=== PATIENT | female | born 1985 ===

== ENCOUNTER 2019-07-12 09:28 | Emergency (ER) | payer OTHER ==
[~2019-07-12] VITALS: Ht 154.9 cm; Wt 58.1 kg
[2019-07-12] MEDS ORDERED: PROVERA (09:52)
== END 2019-07-12 13:48 | disposition home or self-care (01) ==
LOC: ER 09:28
DX: N93.8 Other specified abnormal uterine and vaginal bleeding (principal)

== ENCOUNTER 2023-08-27 09:30 | Inpatient (IN) | payer OTHER ==
[~2023-08-27] VITALS: Ht 154.9 cm; Wt 58.5 kg
[~2023-08-27 09:30] MED LIST: PROVERA
[2023-08-27 11:48] LABS: INR 0.94; PARTIAL THROMBOPLASTIN TIME 27.3 SECONDS (22.0-34.0); PROTHROMBIN TIME 9.9 SECONDS (9.0-11.5)
[2023-08-27] MEDS ORDERED: INFLIXIMAB (12:58)
[2023-08-27] MEDS ORDERED: COZAAR50 MG (12:59)
[2023-08-27] MEDS ORDERED: SPRINTEC 28 DA1 EACH (12:59)
[2023-08-27] MEDS ORDERED: [UNRECOGNIZED DRUG - OTHER] (12:59)
[2023-09-05] MEDS ORDERED: POVIDONE-IODINE 118 ML BOTT TOP ONE ×2 (07:05→08:30)
[2023-09-05] MEDS ORDERED: VISTASEAL DUAL APPICATOR 1 EACH APPL TOP ONE ×2 (07:07→08:30)
[2023-09-05] MEDS ORDERED: THROMBIN,HU/FIBRINOGEN/CALCIUM 4 ML SYRINGE TOP ONE ×2 (07:08→08:30)
[2023-09-05] MEDS ORDERED: CEFAZOLIN SODIUM 1,000 MG VIAL ONE (07:17)
[2023-09-05] MEDS ORDERED: LIDOCAINE HCL/EPINEPHRINE 10MG/ML 1% 50ML IJ ONE (08:10)
[2023-09-05] MEDS ORDERED: BUPIVACAINE HCL/PF 0.5% 30ML ML ONE (08:10)
[2023-09-05] MEDS ORDERED: LIDOCAINE HCL/EPINE 1%-Epi 30ML VIAL IJ ONE (08:30)
[2023-09-05] MEDS ORDERED: CEFAZOLIN SODIUM 1,000 MG VIAL IV ONE (08:30)
[2023-09-05] MEDS ORDERED: BUPIVACAINE HCL/PF 0.5% 30ML ML IJ ONE (08:30)
[2023-09-05] MEDS ORDERED: RINGERS SOLUTION,LACTATED 1,000 ML IV SCH (09:31)
[2023-09-05] MEDS ORDERED: ONDANSETRON HCL 2 MG/ML VIAL IV SCH (09:31)
[2023-09-05] MEDS ORDERED: CELECOXIB 200 MG CAPSULE PO SCH (09:32)
[2023-09-05] MEDS ORDERED: CEFOXITIN SODIUM 2,000 MG VIAL IV SCH (09:32)
[2023-09-05] MEDS ORDERED: ACETAMINOPHEN 325 MG TABLET PO SCH (09:33)
[2023-09-05] MEDS ORDERED: GABAPENTIN 100 MG CAPSULE PO SCH (09:33)
[2023-09-05] MEDS ORDERED: ONDANSETRON HCL 2 MG/ML VIAL ONE (10:17)
[2023-09-05 13:06] LABS: HEMATOCRIT 35.2 % (36.0-45.00); MEAN CELL VOLUME 83.6 fL (80.00-100.00); MEAN CORPUSCULAR HGB CONC 34.4 g/dl (32.0-36.0); PLATELET COUNT 347 K/uL (150-450); RED BLOOD COUNT 4.21 M/uL (4.00-6.00); RED CELL DISTRIBUTION WIDTH 14.9 % (11.5-14.5)
[2023-09-05 13:07] LABS: HEMOGLOBIN 12.1 g/dL (12.0-15.00); MEAN CORPUSCULAR HEMOGLOBIN 28.7 pg (27.00-32.0)
[2023-09-05 14:32] LABS: CALCIUM 8.8 mg/dL (8.5-10.1); CREATININE SERUM 0.72 mg/dL (0.55-1.02); GFR 90.65; POTASSIUM 5.14 mEq/L (3.5-5.1)
[2023-09-05 18:11] LABS: HEMATOCRIT 36.6 % (36.0-45.00); HEMOGLOBIN 12.1 g/dL (12.0-15.00); MEAN CELL VOLUME 83.3 fL (80.00-100.00); MEAN CORPUSCULAR HEMOGLOBIN 27.6 pg (27.00-32.0); MEAN CORPUSCULAR HGB CONC 33.1 g/dl (32.0-36.0); PLATELET COUNT 378 K/uL (150-450); RED CELL DISTRIBUTION WIDTH 15.3 % (11.5-14.5)
== END 2023-09-06 09:56 | disposition home or self-care (01) | DRG 743 ==
LOC: O/R 09-05 05:15 → SURH 09-05 07:00 → OB/GYN 09-05 10:02
PROVIDERS: ADMIT Obstetrics & Gynecology Gynecology; ATTEND Obstetrics & Gynecology Gynecology
PROC: 0UT74ZZ Resection of Bilateral Fallopian Tubes, Percutaneous Endoscopic Approach (ICD-10-PCS; 2023-09-05)
PROC: 0UT94ZZ Resection of Uterus, Percutaneous Endoscopic Approach (ICD-10-PCS; principal; 2023-09-05 07:00)
DX: D25.1 Intramural leiomyoma of uterus (principal); N80.03 Adenomyosis of the uterus; Z20.822 Contact with and (suspected) exposure to COVID-19